=== PATIENT | male | born 1965 | race Caucasian/White ===

== ENCOUNTER 2025-05-26 07:00 | Outpatient (CLI) | payer OTHER ==
[2025-05-26 07:33] LABS: URINE APPEARANCE Clear; URINE BILIRRUBIN Negative (NEGATIVE); URINE BLOOD Negative; URINE COLOR Yellow; URINE GLUCOSE Negative (NEGATIVE); URINE KETONE 15 (NEGATIVE); URINE LEUKOCYTE Negative; URINE NITRATE Negative; URINE PROTEIN Negative (NEGATIVE); URINE UROBILINOGEN 0.2 E.U./dl
[2025-05-26 07:38] LABS: URINE WBC 2.2 uL (0.0-23.2)
[2025-05-26 07:39] LABS: BASO % 0.9 % (0.1-1.2); EOS # 0.03 (0.04-0.54); EOS % 0.5 % (0.7-7.0); LYMPH # 1.81 (1.18-3.74); LYMPH % 31.4 % (19.3-53.1); MEAN PLATELET VOLUME 9.60 fl (9.4-12.4); MONO # 0.63 (0.24-0.82); MONO % 10.9 % (4.7-12.5); NEUT # 3.24 (1.56-6.13); NEUT % 56.1 % (34.0-71.1); RED CELL DISTRIBUTION WIDTH 14.1 % (11.6-14.4); URINE BACTERIA 2.3 uL (0.0-1933); URINE CAST 0.00 uL (0.0-1.40); URINE EPITHELIAL CELLS 0.9 uL (0.0-38.8); URINE RBC 0.7 uL (0.0-20.8)
[2025-05-26 08:43] LABS: ALT/SGPT 48.0 U/L (12-78); AST/SGOT 25.0 U/L (15-37); BILIRUBIN TOTAL 0.56 mg/dL (0.3-1.2); BUN CREA RATIO 23.0 (7.0-25.0); CHOL HDL RATIO 3.4 (0-5.0); CREATININE SERUM 0.84 mg/dL (0.70-1.30); GFR 93.85; GLOBULINA 3.1 G/DL (2.4-3.5); GLUCOSE FASTING 83.0 mg/dL (65-100); HDL 51.0 mg/dl (40-60); LDL 99.0 mg/dl (0-130); OSMOLALITY SERUM 281.0 MOSM/KG (275-295); TSH 4.7 uIU/mL (0.358-3.74); VLDL 21.0 (0-39)
[2025-05-26 08:47] LABS: PROSTATIC SPECIFIC ANTIGEN 4.26 NG/ML (0.010-4.00)
[2025-05-29 11:08] LABS: CALCIUM IONIZED 5.7 mg/dL (4.5-5.6)
[2025-05-30 05:07] LABS: hav igm Negative (Negative); hep b c Negative (Negative); hep b s ag Negative (Negative)
[2025-05-30 17:08] LABS: T T 1414 ng/dL (264-916); test free 27.3 pg/mL (7.2-24.0)
== END 2025-05-26 08:35 | disposition home or self-care (01) ==
LOC: LAB 07:00
PROVIDERS: ATTEND Radiology Diagnostic Radiology
DX: Z02.79 Encounter for issue of other medical certificate (principal); R00.2 Palpitations; I10 Essential (primary) hypertension; E83.52 Hypercalcemia; E08.21 Diabetes mellitus due to underlying condition with diabetic nephropathy

== ENCOUNTER 2025-09-21 08:01 | Outpatient (CLI) | payer OTHER ==
[2025-09-21 10:10] LABS: CREATININE SERUM 1.04 mg/dL (0.70-1.30)
== END 2025-09-21 08:17 | disposition home or self-care (01) ==
LOC: LAB 08:01
PROVIDERS: ATTEND Radiology Diagnostic Radiology
DX: N40.0 Benign prostatic hyperplasia without lower urinary tract symptoms (principal)

== ENCOUNTER 2025-09-22 07:42 | Outpatient (CLI) | payer OTHER ==
[2025-09-23 10:07] LABS: % FREE PSA 13.9 % (.)
== END 2025-09-22 08:27 | disposition home or self-care (01) ==
LOC: LAB 07:42
PROVIDERS: ATTEND Radiology Diagnostic Radiology
DX: N40.0 Benign prostatic hyperplasia without lower urinary tract symptoms (principal)